=== PATIENT | female | born 1955 | race American Indian/Alaskan Native ===

== ENCOUNTER 2021-09-09 08:13 | Day surgery (SDC) | payer MEDICARE ==
[2021-09-09] MEDS ORDERED: ASPIRIN EC 325 MG TAB PO NR (08:55)
[2021-09-09] MEDS ORDERED: SODIUM CHLORIDE 0.9% 500 ML 500 ML IV SCH (09:00)
[2021-09-09 09:32] LABS: Basophils # (Auto) 0.1 K/mm3 (0.0-0.1); Basophils % (Auto) 0.9 % (0.0-1.8); Eosinophils % (Auto) 0.6 % (0.0-4.3); Hemoglobin 10.7 gm/dl (10.1-14.3); Lymphocytes # (Auto) 1.9 K/mm3 (1.2-5.4); Lymphocytes % (Auto) 24.5 % (13.4-35.0); Mean Corpuscular HGB Conc 32 % (30-34); Mean Corpuscular Volume 72 fl (79-97); Monocytes # (Auto) 0.5 K/mm3 (0.0-0.8); Monocytes % (Auto) 6.9 % (0.0-7.3); Platelet Count 256 K/mm3 (140-440); Red Blood Count 4.73 M/mm3 (3.65-5.03); Red Cell Distribution Width 16.5 % (13.2-15.2)
[2021-09-09 09:46] LABS: INR 0.92 (0.87-1.13)
[2021-09-09 10:01] LABS: BUN/Creatinine Ratio 13; Blood Urea Nitrogen 12 mg/dL (7-17); Calcium 8.9 mg/dL (8.4-10.2); Hemolysis Index 2
[2021-09-09] MEDS ORDERED: HEPARIN/NS 5000 UNIT/500ML 1,000 ML IR ONE (11:03)
[2021-09-09] MEDS ORDERED: NITROGLYCERIN SYRINGE 3 ML ONE (11:03)
[2021-09-09] MEDS ORDERED: HEPARIN 10,000 UNITS/10 ML VIAL ONE (11:03)
[2021-09-09] MEDS ORDERED: VERAPAMIL 5 MG/2 ML INJ ONE (11:03)
[2021-09-09] MEDS ORDERED: LIDOCAINE (2%) 20 MG/1 ML VIAL 20 ML MDV INFILTRATI ONE (11:03)
[2021-09-09] MEDS ORDERED: MIDAZOLAM 2 MG/2 ML INJ ONE (11:04)
[2021-09-09] MEDS ORDERED: fentaNYL 100 MCG/2 ML INJ ONE (11:04)
--- NOTE | 2021-09-09 12:30 | Short Stay Summary ---
Short Stay Documentation - History H&P: obtained from office - Allergies and Medications Current Medications: Allergies No Known Allergies Allergy (Verified 09/09/21 08:53) Home Medications Medication Instructions Recorded Confirmed Last Taken Type Lisinopril/Hydrochlorothiazide 20 - 25 mg PO DAILY 09/09/21 09/09/21 09/07/21 History [Zestoretic 10-12.5 mg Tablet] 1 tab Metoprolol Xl [Metoprolol 50 mg PO DAILY 09/09/21 09/09/21 09/07/21 History SUCCINATE ER TAB] 50 mg Thyroid,Pork 60 mg PO DAILY 09/09/21 09/09/21 09/07/21 History 60 mg Active Medications Sodium Chloride (Nacl 0.9% 500 Ml) 500 mls @ 50 mls/hr IV DIRECT SAMARA Stop: 09/09/21 18:59 Last Admin: 09/09/21 09:41 Dose: 50 mls/hr - Physical exam Integumentary: other (Dressing clean dry and intact no signs of bleeding or hematoma) - Brief post op/procedure progress note Date of procedure: 09/09/21 Pre-op diagnosis: Abnormal stress Post-op diagnosis: other Anesthesia: local Estimated blood loss: minimal (Normal coronary) - Hospital course Hospital course: Patient underwent cardiac cath this a.m. Patient tolerated procedure well with no complication - Disposition Condition at discharge: Good Disposition: 01 HOME / SELF CARE / HOMELESS Short Stay Discharge Plan Activity: advance as tolerated Diet: low fat, low cholesterol, low salt Wound: keep clean and dry, remove dressing Additional Instructions: Hold metformin for 48 hours Follow up with: DELMI COHEN MD [Primary Care Provider] - 7 Days ANGELA MARMOLEJO MD [Staff Physician] - 09/23/21 2:30 pm (Patient to follow- up appoint with Dr. Marmolejo on 09/23/2021 at 2:30 PM at our [place] location phone #[phone])
--- NOTE | 2021-09-09 13:21 | Cardiac Catherization Report ---
DATE OF PROCEDURE: 09/09/2021 CARDIAC CATHETERIZATION REFERRING PHYSICIAN: Dr. Marmolejo. INDICATIONS FOR PROCEDURE: The patient is a pleasant 65-year-old female with hypertension, LVH, obesity, prediabetes, who presents here with an abnormal stress test and shortness of breath, referred for left heart catheterization. Risks, benefits, and potential alternatives explained at length prior to obtaining informed consent. PROCEDURE IN DETAIL: The patient was brought to laboratory secretary in a postabsorptive state, prepped and draped in sterile fashion. Valentin's test in right hand is normal. A 2 mL of 2% lidocaine used to anesthetize the right wrist. A standard 5-Grenadian sheath used to cannulate the right radial artery via modified Seldinger technique, very significant tortuosity, multiple curly cues in the subclavian and thus we changed to groin approach, 5-Grenadian sheath placed in right common femoral artery via modified Seldinger technique. A 5-Grenadian JL4 catheter used to engage the left main. No dampening or ventricularization. Cineangiography performed in all projections. JR4 catheter used to cross the aortic valve under fluoroscopic guidance. Left ventriculography performed in 30-degree VAZQUEZ projection via hand injection. Next, catheter flushed. Manual pullback performed with continuous pressure monitoring. Catheter was used to engage the right coronary. No dampening or ventricularization. Cineangiography performed in all projections. Next, catheter is removed from the body over wire. Both sheaths were removed with manual pressure applied. Standard radial and groin care. I directly supervised the administration of moderate sedation with fentanyl and Versed from 11:30 a.m. to 12:15 p.m. No immediate complications identified. DATA: The patient remained in normal sinus rhythm throughout the procedure. Aortic pressure is 170/80, LV pressure is 170. LVEDP of 18 mmHg. Left ventriculography reveals normal systolic performance, estimated ejection fraction 55-60%. No evidence of aortic stenosis. CORONARY ANATOMY: This is a left dominant system. Left main without significant disease, trifurcates into left anterior descending, ramus intermedius and left circumflex. Left circumflex courses AV groove, gives off left PDA, no significant disease. Ramus intermedius courses the medial aspect of the lateral wall. No significant disease. LAD is a large vessel, courses anterior intergroove, wraps around the apex. No significant disease in LAD or diagonal system. It should be noted that the entire coronary tree is quite tortuous. The right coronary is a small vessel, courses AV groove. No significant disease noted. CONCLUSIONS: 1. No angiographic evidence of significant epicardial coronary artery disease in the left dominant system. 2. Normal left ventricular systolic performance, estimated ejection fraction 55-60%. 3. No evidence of aortic stenosis. 4. Normal LVEDP. The patient is clinically stable. Standard radial and groin care. Blood pressure control. Primary and secondary prevention measures. Hold metformin x 2 days. Results of the procedure are explained to the patient at length. All questions were addressed. Follow up with Dr. Marmolejo in the office. TID: [id number] RECEIPT: [id number] JOHANNA/CARLOS/PRINCESS
[2021-09-09] MEDS ORDERED: oxyCODONE /ACETAMINOPHEN 5-325MG TAB PO ONE (13:37)
[2021-09-09 16:23] VITALS: BP 121/64
== END 2021-09-09 17:45 | disposition home or self-care (01) ==
LOC: CATHLABREC 08:13
PROVIDERS: ATTEND Internal Medicine
DX: R94.39 Abnormal result of other cardiovascular function study (principal); R94.30 Abnormal result of cardiovascular function study, unspecified; R07.89 Other chest pain; I10 Essential (primary) hypertension; E66.01 Morbid (severe) obesity due to excess calories; I47.1 Supraventricular tachycardia; R73.03 Prediabetes; E78.00 Pure hypercholesterolemia, unspecified; E03.9 Hypothyroidism, unspecified; Z79.899 Other long term (current) drug therapy; Z98.890 Other specified postprocedural states
CPT/HCPCS: 36415; 80048; 85025; 85610; 85730; 93005; 93458; 99156; 99157; C1769; C1894; J1644; J1815; J2250; J3010; J3490; J7040; Q9967